=== PATIENT | male | born 1945 | race Two or more races ===

== ENCOUNTER 2019-05-19 10:50 | Inpatient (IN) | payer OTHER, MEDICAID ==
[~2019-05-19] VITALS: Ht 160 cm; Wt 83.9 kg
--- NOTE | 2019-05-19 10:50 | NUR ---
SENT BY PMD C/O DIZZINESS AND POSSIBLE SYBCOPE EARLIER AT MD'S OFFICE, TO ER BED 9, HOOKED TO MONITOR, CHANGED TO GOWN, PROVIDED W WARM BLANKET, AWAITING MD LIN.
--- NOTE | 2019-05-19 11:16 | NUR ---
DR DUMONT AT BEDSIDE
[2019-05-19] MEDS ORDERED: IV NS 0.9% 1,000 ML BAG IV ONE (11:30)
--- NOTE | 2019-05-19 11:31 | NUR ---
WHEELED OUT VIA RNEY FOR CT SCAN
[2019-05-19 11:34] LABS: BASOPHILS # (AUTO) 0.1 /CMM (0.0-0.2); BASOPHILS % (AUTO) 1.2 % (0.0-2.0); EOSINOPHILS % (AUTO) 5.6 % (0.0-6.0); HEMATOCRIT 37 % (39-51); HEMOGLOBIN 12.6 g/dL (13.5-17.5); LYMPHOCYTES # (AUTO) 1.7 /CMM (0.8-4.8); LYMPHOCYTES % (AUTO) 34.8 % (20.0-44.0); MEAN CORPUSCULAR HGB CONC 34 g/dl (31.0-36.0); MEAN CORPUSCULAR VOLUME 87 fL (80-96); MONOCYTES # (AUTO) 0.6 /CMM (0.1-1.30); MONOCYTES % (AUTO) 11.7 % (2.0-12.0); NEUTROPHILS # (AUTO) 2.3 /CMM (1.8-8.9); NEUTROPHILS % (AUTO) 46.7 % (43.0-81.0); PLATELET COUNT (AUTO) 175 /CMM (150-450); RED BLOOD CELL COUNT(AUTO) 4.29 MIL/uL (4.5-6.0); WHITE BLOOD COUNT (AUTO) 4.9 K/uL (4.3-11.0)
[2019-05-19 11:43] LABS: CALCIUM, SERUM 8.9 mg/dL (8.5-10.1); CARBON DIOXIDE 26 mmol/L (21-32); CHLORIDE 105 mmol/L (98-107); CREATININE 1.9 mg/dL (0.6-1.3); GLUCOSE 190 mg/dL (74-106); POTASSIUM 4.7 mmol/L (3.5-5.1); SODIUM SERUM 137 mmol/L (136-145); UREA NITROGEN, BLOOD 22 mg/dL (7-18)
--- NOTE | 2019-05-19 11:46 | NUR ---
PAGED EPIC DEMOLITION WORKER - ANDONIAN
[2019-05-19 11:48] LABS: ALANINE AMINOTRANSFERASE 41 U/L (12-78); ALBUMIN 3.3 g/dL (3.4-5.0); ALKALINE PHOSPHATASE 97 U/L (46-116); ASPARTATE AMINOTRANSFERASE 39 U/L (15-37); BILIRUBIN,DIRECT 0.1 mg/dL (0.0-0.2); BILIRUBIN,TOTAL 0.2 mg/dL (0.2-1.0); TOTAL PROTEIN, SERUM 6.9 g/dL (6.4-8.2)
[2019-05-19] MEDS ORDERED: OMEP20CA11 PO (12:00)
[2019-05-19] MEDS ORDERED: COLC0.6C PO (12:00)
[2019-05-19] MEDS ORDERED: ATOR20TA PO (12:00)
[2019-05-19] MEDS ORDERED: LOSA100T31 PO (12:00)
[2019-05-19] MEDS ORDERED: TIZA4TAB5 PO (12:00)
[2019-05-19] MEDS ORDERED: DICL50TA9 PO (12:00)
[2019-05-19] MEDS ORDERED: METF-442 PO (12:00)
[2019-05-19] MEDS ORDERED: GLIP10TA11 PO (12:00)
[2019-05-19] MEDS ORDERED: TIZANIDINE HCL 4 MG TABLET PO PRN (13:00)
[2019-05-19] MEDS ORDERED: ONDANSETRON HCL/PF 4 MG/2 ML VIAL IVP PRN (13:00)
[2019-05-19] MEDS ORDERED: Z GUARD REMEDY 2 OZ OINT TP PRN (13:00)
[2019-05-19] MEDS ORDERED: MAG HYDROX/AL HYDROX/SIMETH 30 ML UDC PO PRN (13:00)
[2019-05-19] MEDS ORDERED: ZOLPIDEM TARTRATE 5 MG TABLET PO PRN (13:00)
[2019-05-19] MEDS ORDERED: HYDROCODONE/APAP 5/325MG 1 EACH TABLET PO PRN (13:00)
[2019-05-19] MEDS ORDERED: MAGNESIUM HYDROXIDE 30 ML UDC PO PRN (13:00)
[2019-05-19] MEDS ORDERED: ACETAMINOPHEN 325 MG TABLET PO PRN (13:00)
--- NOTE | 2019-05-19 13:20 | NUR ---
REPORT GIVEN TO SINAI MCLAIN OF TELE UNIT
[2019-05-19] MEDS: IV NS 0.9% 1,000 ML IV SCH (14:03)
--- NOTE | 2019-05-19 14:29 | NUR ---
FUEL TANK SEALER AND TESTER OPENING NOTES Patient received on room air, no sob noted, denies pain at this time. Patient able to walk from [facility] to patient bed. Vital signs stable, no further question at this time. Bed at the lowest setting, call light within reach.
[2019-05-19] MEDS ORDERED: DICLOFENAC SODIUM 25 MG TABLET.DR PO SCH (15:00)
[2019-05-19 16:00] VITALS: BP 137/91
[2019-05-19] MEDS ORDERED: COLCHICINE 0.6 MG TABLET PO SCH (17:00)
--- NOTE | 2019-05-19 18:49 | NUR ---
FIRER LOCOMOTIVE CLOSING NOTES Patient remains room air, no sob noted, patient denies pain at this time. Patient remains showing sinus bradycardia in the monitor. Patient's left ac 18 gauge remains patent and open. Bed at the lowest setting, call light within reach. Will give report to NOC rn for URIEL bedside.
--- NOTE | 2019-05-19 19:45 | NUR ---
RN NOTES RECEIVED PATIENT AWAKE, ALERT ORIENTED X4, [place] SPEAKING, KNOWS SOME SAMI, ABLE TO MAKE NEEDS KNOWN, CALM RESTING COMFORTABLY, NO SIGNS OF ACUTE DISTRESS NOTED, SAFETY MEASURES IN PLACE, ALL NEEDS ATTENDED, CALL LIGHT WITHIN EASY REACH, IV ACCESS ON HIS LEFT AC G#18 INTACT AND PATENT, DENIES ANY PAIN OR DISCOMFORT AT THIS TIME, WILL CONTINUE TO MONITOR ACCORDINGLY.
[2019-05-19 20:00] VITALS: BP 154/85
[2019-05-19] MEDS: ATORVASTATIN 10 MG TABLET PO SCH (22:57)
[2019-05-20] VITALS (8 sets, daily range): BP systolic 126–184; BP diastolic 8–88
[2019-05-20] MEDS: IV NS 0.9% 1,000 ML IV SCH ×3 (01:58→19:38)
--- NOTE | 2019-05-20 02:00 | NUR ---
RN NOTES ALL NEEDS ATTENDED AND MET, ENDORSED TO RAYNE PATRICIO FOR CONTINUITY OF CARE. PATIENT IS SLEEPING COMFORTABLY AT THIS TIME.
--- NOTE | 2019-05-20 02:22 | NUR ---
RN opening notes Received Pt from RAYNE Thacker. Pt is alert and oriented x4. Pt is sleeping in bed comfortably. Respiration is normal. No SOB. No nausea or vomiting. Pt denies any pain or discomfort. Pt connected to cardiac care unit nurse - sinus candida 58 bpm. IV sites at LAC #18 is intact, patent and infusing well NS @ 100ml/hr. Pt has a steady gait. Instructed to call. Bed at low position, brakes on, side rails upX2 and call light is within reach. Will continue to monitor.
[2019-05-20] MEDS ORDERED: ALLO100T PO (03:48)
[2019-05-20] MEDS ORDERED: CHOL200026 PO (03:48)
--- NOTE | 2019-05-20 04:45 | NUR ---
detector car operator notes Pt is sleeping in bed comfortably. Awaken easily. No SOB. No nausea or vomiting. No S/S of distress noted. VS is stable. secured entrance monitor showed sinus candida 58 bpm. Will continue to monitor.
[2019-05-20 06:51] LABS: BASOPHILS # (AUTO) 0.1 /CMM (0.0-0.2); BASOPHILS % (AUTO) 1.3 % (0.0-2.0); EOSINOPHILS % (AUTO) 7.7 % (0.0-6.0); HEMATOCRIT 38 % (39-51); LYMPHOCYTES # (AUTO) 1.9 /CMM (0.8-4.8); LYMPHOCYTES % (AUTO) 35.3 % (20.0-44.0); MEAN CORPUSCULAR HGB CONC 34 g/dl (31.0-36.0); MEAN CORPUSCULAR VOLUME 86 fL (80-96); MONOCYTES # (AUTO) 0.5 /CMM (0.1-1.30); MONOCYTES % (AUTO) 9.4 % (2.0-12.0); NEUTROPHILS # (AUTO) 2.5 /CMM (1.8-8.9); NEUTROPHILS % (AUTO) 46.3 % (43.0-81.0); PLATELET COUNT (AUTO) 168 /CMM (150-450); RED BLOOD CELL COUNT(AUTO) 4.45 MIL/uL (4.5-6.0); WHITE BLOOD COUNT (AUTO) 5.4 K/uL (4.3-11.0)
--- NOTE | 2019-05-20 06:53 | NUR ---
avionics systems repairer closing notes Pt is alert and oriented X4. Pt is resting in bed comfortably. NO SOB. NO nausea or vomiting. Pt denies any pain or discomfort. IV sites at LAC is intact, patent and infusing well NS 100 ml/hr. VS is stable. Afebrile. Pt is connected to hall monitor showed Sinus candida 52 bpm. All needs met. Safety precautions is maintained. Bed at low position and call light is within reach. Will endorse to morning nurse for URIEL.
[2019-05-20 06:58] LABS: CALCIUM, SERUM 8.1 mg/dL (8.5-10.1); CARBON DIOXIDE 22 mmol/L (21-32); CHLORIDE 106 mmol/L (98-107); CREATININE 1.5 mg/dL (0.6-1.3); GLUCOSE 124 mg/dL (74-106); MAGNESIUM 1.5 mg/dL (1.8-2.4); PHOSPHORUS 3.1 mg/dL (2.5-4.9); POTASSIUM 4.5 mmol/L (3.5-5.1); SODIUM SERUM 139 mmol/L (136-145); UREA NITROGEN, BLOOD 19 mg/dL (7-18)
[2019-05-20 07:05] LABS: CHOLESTEROL 189 mg/dL (<200); HDL CHOLESTEROL 58 mg/dL (40-60); LDL 109 mg/dL (0-99); TRIGLYCERIDES 194 mg/dL (30-150)
[2019-05-20] MEDS ORDERED: OMEPRAZOLE 20 MG CAPSULE.DR PO SCH (07:30)
--- NOTE | 2019-05-20 08:03 | NUR ---
HOG DRIVER NOTES PT AWAKE, WALKING IN HIS ROOM WITH STEADY GAIT, DENIES PAIN, NOT IN DISTRESS, IV FLUIDS INFUSING WELL, SEEN BY DR. VEGA, PLAN OF CAR DISCUSSED WITH PT, VERBALIZED UNDERSTANDING, WILL CONTINUE TO MONITOR.
[2019-05-20] MEDS: Magnesium 1GM/D5W 100ML PREMIX 100 ML IV SCH ×2 (08:57→09:57)
[2019-05-20] MEDS: PANTOPRAZOLE 40 MG TABLET.DR PO SCH (08:57)
[2019-05-20] MEDS: glipiZIDE 10 MG TABLET PO SCH (09:08)
[2019-05-20] MEDS: COLCHICINE 0.6 MG TABLET PO SCH (09:08)
[2019-05-20] MEDS: METFORMIN 500 MG TABLET PO SCH (09:09)
--- NOTE | 2019-05-20 12:00 | NUR ---
PULL TAB DEALER NOTES PT IN BED, AWAKE, ALERT AND ORIENTED, DENIES PAIN, NOT IN DISTRESS, CALL LIGHT WITHIN REACH, IV FLUIDS INFUSING WELL, TOLERATING CURRENT DIET WELL, NEEDS ATTENDED.
--- NOTE | 2019-05-20 18:08 | NUR ---
CENTRAL PROCESSING TECHNICIAN NOTES PT IN BED, AWAKE, ALERT AND ORIENTED, NO COMPLAINT AT THIS TIME, RESPIRATIONS NORMAL, AMBULATES TO THE BATHROOM WITH STEADY GAIT, CALL LIGHT WITHIN REACH, TOLERATES CURRENT DIET, NEEDS ATTENDED.
--- NOTE | 2019-05-20 20:00 | NUR ---
TELE/RN OPENING NOTES RECEIVED PATIENT IN BED, AWAKE, ALERT X3, HEBREW SPEAKING BUT ABLE TO SPEAK A LITTLE CROATIAN, CAN FOLLOW SIMPLE COMMANDS, DENIES PAIN, BED ALARM ON, BED LOCKED, CALL LIGHTS WITHIN REACH, OFFERED AND PROVIDED FLUIDS, IV FLUIDS RUNNING AT 75 ML/HR, PATENCY CHECK WILL MONITOR.
[2019-05-20] MEDS: ATORVASTATIN 10 MG TABLET PO SCH (21:35)
--- NOTE | 2019-05-20 22:04 | NUR ---
MS/RN NOTED IV NS AT 100 ML/HR RUNNING FOR CORRECTION
[2019-05-21] VITALS: BP 150/73
[2019-05-21 04:00] VITALS: BP 141/78
[2019-05-21] MEDS: IV NS 0.9% 1,000 ML IV SCH (04:19)
[2019-05-21 05:39] VITALS: BP_SYST 141; BP_SYST 159; BP_SYST 183; BP_DIAS 78; BP_DIAS 83; BP_DIAS 87
[2019-05-21 06:27] LABS: BASOPHILS # (AUTO) 0.1 /CMM (0.0-0.2); BASOPHILS % (AUTO) 1.1 % (0.0-2.0); EOSINOPHILS % (AUTO) 7.8 % (0.0-6.0); HEMATOCRIT 38 % (39-51); HEMOGLOBIN 12.9 g/dL (13.5-17.5); LYMPHOCYTES # (AUTO) 1.9 /CMM (0.8-4.8); LYMPHOCYTES % (AUTO) 37.4 % (20.0-44.0); MEAN CORPUSCULAR HGB CONC 34 g/dl (31.0-36.0); MEAN CORPUSCULAR VOLUME 86 fL (80-96); MONOCYTES # (AUTO) 0.4 /CMM (0.1-1.30); MONOCYTES % (AUTO) 7.4 % (2.0-12.0); NEUTROPHILS # (AUTO) 2.4 /CMM (1.8-8.9); NEUTROPHILS % (AUTO) 46.3 % (43.0-81.0); PLATELET COUNT (AUTO) 162 /CMM (150-450); RED BLOOD CELL COUNT(AUTO) 4.36 MIL/uL (4.5-6.0); WHITE BLOOD COUNT (AUTO) 5.1 K/uL (4.3-11.0)
--- NOTE | 2019-05-21 06:47 | NUR ---
MS/RN NOTES PATIENT ABLE TO SLEEP DURING THE NIGHT, MONITORED FOR ANY CHANGES. KEPT COMFORTABLE. BED LOCKED, CALL LIGHTS WITHIN REACH.
[2019-05-21 07:10] LABS: CALCIUM, SERUM 8.3 mg/dL (8.5-10.1); CARBON DIOXIDE 24 mmol/L (21-32); CHLORIDE 108 mmol/L (98-107); CREATININE 1.3 mg/dL (0.6-1.3); GLUCOSE 123 mg/dL (74-106); MAGNESIUM 1.7 mg/dL (1.8-2.4); POTASSIUM 4.3 mmol/L (3.5-5.1); SODIUM SERUM 141 mmol/L (136-145); UREA NITROGEN, BLOOD 14 mg/dL (7-18)
--- NOTE | 2019-05-21 07:50 | NUR ---
MS RN RECEIVED ON BED, AWAKE,ALERT,ORIENTED X4,NOT IN ANY FORM OF DISTRESS, RESPIRATIONS EVEN AND UNLABORED,NO SOB NOTED, LUNGS ARE CLEAR,ABDOMEN SOFT,POSITIVE BOWEL SOUNDFS, DENIES CHEST PAIN AT THIS TIME, WILL MONITOR PATIENT'S CONDITION.
[2019-05-21 08:00] VITALS: BP 175/94
--- NOTE | 2019-05-21 08:30 | NUR ---
MS RAYNE WAS SEEN BY JESSICA MCMULLEN/ ORDERS MADE AND CARRIED OUT.
[2019-05-21] MEDS ORDERED: VALSARTAN 80 MG TABLET PO SCH (09:00)
--- NOTE | 2019-05-21 09:00 | NUR ---
MS RAYNE BREAKFAST SERVED,DUE MEDS GIVEN , TOLERATED WELL, WAITING FOR MD TO COME.
[2019-05-21 09:12] LABS: IRON, SERUM 46 ug/dl (50-175); TOTAL IRON BINDING CAPACITY 352 ug/dl (250-450)
[2019-05-21] MEDS: Magnesium 1GM/D5W 100ML PREMIX 100 ML IV SCH ×2 (09:19→10:45)
[2019-05-21] MEDS: glipiZIDE 10 MG TABLET PO SCH (09:19)
[2019-05-21 09:20] VITALS: BP 175/94
[2019-05-21] MEDS: PANTOPRAZOLE 40 MG TABLET.DR PO SCH (09:20)
[2019-05-21] MEDS: METFORMIN 500 MG TABLET PO SCH (09:20)
[2019-05-21] MEDS: COLCHICINE 0.6 MG TABLET PO SCH (09:20)
[2019-05-21 09:26] LABS: FERRITIN 39 ng/mL (8-388)
--- NOTE | 2019-05-21 14:50 | NUR ---
MS SILK PRINTER ACCOMPANIED BY DAUGHTER.
--- NOTE | 2019-05-21 14:50 | NUR ---
MS MCLAINLOG TRUCK DRIVER INSTRUCTIONS GIVEN AND UNDERSTOOD, PATIENT WAS DISCHAGRE HOME ACCOMPANIED BY PATIENT. Addendum: 05/21/19 at 1504 by ESTELITA LARSEN RN DISREGARD THIS NOTES,
== END 2019-05-21 14:55 | disposition home or self-care (01) | DRG 308 ==
LOC: ER 10:54 → TELE 12:53 → MED 05-21 09:22
PROVIDERS: ADMIT Family Medicine; ATTEND Family Medicine
DX: R00.1 Bradycardia, unspecified (principal); N17.0 Acute kidney failure with tubular necrosis; E44.1 Mild protein-calorie malnutrition; E66.9 Obesity, unspecified; D63.8 Anemia in other chronic diseases classified elsewhere; I10 Essential (primary) hypertension; M10.9 Gout, unspecified; Z68.32 Body mass index [BMI] 32.0-32.9, adult; Z87.891 Personal history of nicotine dependence; Z80.0 Family history of malignant neoplasm of digestive organs; Z82.49 Family history of ischemic heart disease and other diseases of the circulatory system; Z79.84 Long term (current) use of oral hypoglycemic drugs; I95.2 Hypotension due to drugs; T50.905A Adverse effect of unspecified drugs, medicaments and biological substances, initial encounter; Y92.009 Unspecified place in unspecified non-institutional (private) residence as the place of occurrence of the external cause; E11.65 Type 2 diabetes mellitus with hyperglycemia; E83.42 Hypomagnesemia; E78.5 Hyperlipidemia, unspecified; E86.9 Volume depletion, unspecified; T39.395A Adverse effect of other nonsteroidal anti-inflammatory drugs [NSAID], initial encounter
CPT/HCPCS: 36415; 70450-TC; 71045-TC; 80048-TC; 80061-TC; 80076-TC; 82728-TC; 83540-TC; 83735-TC; 84100-TC; 84484-TC; 85025-TC; 87081-TC; 93307-TC; G0378; J3475; J7030